=== PATIENT | female | born 1940 | race Caucasian/White ===

== ENCOUNTER 2018-02-13 12:48 | Day surgery (SDC) | payer OTHER ==
[~2018-02-13] VITALS: Ht 165.1 cm; Wt 72.1 kg
[~2018-02-13 12:48] MED LIST: ALLO300 PO; CHOL10002 PO; ERGO400 PO; LIRA0.6P; LOSARTIN; METFORMIN; NEBI10 PO
[2018-02-13] MEDS ORDERED: ATEN25 (14:20)
[2018-02-13] MEDS ORDERED: ADULT ASPIRIN81 MG (14:20)
[2018-02-13] MEDS ORDERED: LIRA0.6P (14:21)
[2018-02-13] MEDS ORDERED: K-Tab10 MEQ (14:21)
[2018-02-13] MEDS ORDERED: CHOL10002 (14:21)
[2018-02-13] MEDS ORDERED: FOLBIC RF TABL1 EACH (14:22)
[2018-02-13] MEDS ORDERED: HYDR10 (14:22)
[2018-02-13] MEDS ORDERED: HYDCHL12.5 (14:22)
== END 2018-02-13 16:11 | disposition home or self-care (01) ==
LOC: ORSCSDS 12:48
PROVIDERS: Podiatrist
PROC: 01NH0ZZ Release Peroneal Nerve, Open Approach (ICD-10-PCS; principal; 2018-02-13 15:00)
DX: G57.62 Lesion of plantar nerve, left lower limb (principal); I10 Essential (primary) hypertension; E11.9 Type 2 diabetes mellitus without complications; G47.33 Obstructive sleep apnea (adult) (pediatric); Z79.899 Other long term (current) drug therapy
CPT/HCPCS: 82947; J0690; J1100; J2250; J3010; J7120

== ENCOUNTER → 2018-08-20 | Outpatient (CLI) | payer OTHER ==
[~2018-08-20] MED LIST changes: +ADULT ASPIRIN81 MG; +ATEN25; +CHOL10002; +FOLBIC RF TABL1 EACH; +HYDCHL12.5; +HYDR10; +K-Tab10 MEQ
== END | disposition home or self-care (01) ==
LOC: PLD 15:33 → LAB SHORT 15:33
DX: D22.5 Melanocytic nevi of trunk (principal)
CPT/HCPCS: 88305

== ENCOUNTER → 2019-03-27 | Outpatient (CLI) | payer OTHER ==
[2019-03-27 13:38] LABS: BASOPHILS ABSOLUTE AUTO 0.05 K/mm3 (0.00-0.23); BASOPHILS PERCENT AUTO 1 % (0-2); EOSINOPHILS ABSOLUTE AUTO 0.16 K/mm3 (0.00-0.68); EOSINOPHILS PERCENT AUTO 2 % (0-6); Hematocrit 39.6 % (33.0-51.0); Hemoglobin 13.1 g/dL (11.5-16.0); IMMATURE GRAN ABSOLUTE AUTO 0.03 K/mm3 (0.00-0.10); IMMATURE GRAN PERCENT AUTO 0 % (0-1); LYMPHOCYTES ABSOLUTE AUTO 2.13 K/mm3 (0.84-5.20); LYMPHOCYTES PERCENT AUTO 20 % (21-46); MONOCYTES ABSOLUTE AUTO 0.78 K/mm3 (0.16-1.47); MONOCYTES PERCENT AUTO 7 % (4-13); Mean Corpuscular HGB 31.2 pg (26.0-34.0); Mean Corpuscular HGB Conc 33.1 g/dL (31.5-36.5); Mean Corpuscular Volume 94 fL (80-100); Mean Platelet Volume 11.4 fL (9.1-12.4); NEUTROPHILS ABSOLUTE AUTO 7.69 K/mm3 (1.96-9.15); NEUTROPHILS PERCENT AUTO 71 % (41-73); Platelet Count 285 K/mm3 (150-400); RDW Coefficient Variation 14.2 % (11.7-14.2); RDW Standard Deviation 48.3 fL (35.1-46.3); White Blood Cell Count 10.84 K/mm3 (4.00-11.30)
[2019-03-27 14:12] LABS: Albumin, Blood 3.4 g/dL (3.4-5.0); Albumin/Globulin Ratio 0.8 (0.8-1.8); Bilirubin, Total 0.4 mg/dL (0.1-1.0); Bun/Creatinine Ratio 17.1 (12.0-20.0); Calcium, Blood 9.2 mg/dL (8.5-10.1); Creatinine, Blood 1.17 mg/dL (0.40-1.00); Globulin, Blood 4.4 g/dL (2.2-4.0); Potassium, Blood 3.3 mmol/L (3.5-5.5); Total Protein, Blood 7.8 g/dL (6.4-8.2)
== END ==
LOC: LAB 10:50 → LAB SHORT 10:50
DX: E78.5 Hyperlipidemia, unspecified (principal); M60.9 Myositis, unspecified
CPT/HCPCS: 80053; 82550; 85025; 85651

== ENCOUNTER 2020-02-02 06:48 | Day surgery (SDC) | payer OTHER ==
[~2020-02-02] VITALS: Ht 165.1 cm; Wt 77.2 kg
[~2020-02-02 06:48] MED LIST changes: +ATEN25 PO; +Aspir 8181 MG PO; +CALCIUM-MAGNES1 EAC9 PO; +FISH OIL 1,2001 EAC7 PO; +GLUCOSAMIN-CHO1 EACH PO; +HYDROCHLOROTH12.5 MG PO; +PRED5 PO; +VICTOZA 2-0.6 MG/0.1 SC; +Vitamin D2000 UNIT PO
== END 2020-02-02 09:12 | disposition home or self-care (01) ==
LOC: ORSCSDS 06:48
PROVIDERS: Ophthalmology
PROC: 08RK3JZ Replacement of Left Lens with Synthetic Substitute, Percutaneous Approach (ICD-10-PCS; principal; 2020-02-02 08:15)
DX: H25.11 Age-related nuclear cataract, right eye (principal); I10 Essential (primary) hypertension; G47.33 Obstructive sleep apnea (adult) (pediatric); I12.9 Hypertensive chronic kidney disease with stage 1 through stage 4 chronic kidney disease, or unspecified chronic kidney disease; E11.22 Type 2 diabetes mellitus with diabetic chronic kidney disease; N18.2 Chronic kidney disease, stage 2 (mild); E11.36 Type 2 diabetes mellitus with diabetic cataract; Z79.899 Other long term (current) drug therapy
CPT/HCPCS: 82947; J2001; J2250; J3010; J3301; J7040; V2632

== ENCOUNTER 2020-03-01 09:02 | Day surgery (SDC) | payer OTHER ==
[~2020-03-01] VITALS: Ht 165.1 cm; Wt 76.0 kg
--- NOTE | 2020-03-01 10:36 | NUR ---
03/01/20 1036 Jocelyn Leach INSTILLED EXTRA DILATOR DROP PER DR. NINO
== END 2020-03-01 11:49 | disposition home or self-care (01) ==
LOC: ORSCSDS 09:02
PROVIDERS: Ophthalmology
PROC: 08RJ3JZ Replacement of Right Lens with Synthetic Substitute, Percutaneous Approach (ICD-10-PCS; principal; 2020-03-01 10:45)
DX: H25.11 Age-related nuclear cataract, right eye (principal); I10 Essential (primary) hypertension; E11.36 Type 2 diabetes mellitus with diabetic cataract; Z79.82 Long term (current) use of aspirin; Z79.4 Long term (current) use of insulin; Z79.899 Other long term (current) drug therapy
CPT/HCPCS: 82947; J2001; J2250; J3010; J3301; J7040; V2632

== ENCOUNTER 2020-07-14 13:56 | Day surgery (SDC) | payer OTHER ==
[~2020-07-14] VITALS: Ht 165.1 cm; Wt 74.1 kg
[~2020-07-14 13:56] MED LIST changes: +ACET325 PO; +ALLO100 PO; +ATEN50 PO; +KLOR-CON 1010 ME1 PO; +Prednisone2.5 MG PO
[2020-07-14] MEDS ORDERED: Aspir 8181 MG PO (14:30)
[2020-07-14] MEDS ORDERED: MICROZIDE12.5 M1 PO (14:30)
[2020-07-14] MEDS ORDERED: VITAMIN D325 MC3 PO (14:30)
== END 2020-07-14 16:16 | disposition home or self-care (01) ==
LOC: ORSCSDS 13:56
PROVIDERS: Podiatrist
PROC: 01BG0ZZ Excision of Tibial Nerve, Open Approach (ICD-10-PCS; principal; 2020-07-14 15:30)
DX: G57.62 Lesion of plantar nerve, left lower limb (principal); I10 Essential (primary) hypertension; E11.42 Type 2 diabetes mellitus with diabetic polyneuropathy; Z79.899 Other long term (current) drug therapy; Z79.82 Long term (current) use of aspirin
CPT/HCPCS: 82947; 88304; A9270; J0690; J1100; J2405; J2704; J3010; J7120

== ENCOUNTER → 2020-09-16 | Outpatient (CLI) | payer OTHER ==
[~2020-09-16] MED LIST changes: +MICROZIDE12.5 M1 PO; +VITAMIN D325 MC3 PO
[2020-09-16 13:37] LABS: BASOPHILS ABSOLUTE AUTO 0.05 K/mm3 (0.00-0.23); BASOPHILS PERCENT AUTO 0 % (0-2); EOSINOPHILS ABSOLUTE AUTO 0.24 K/mm3 (0.00-0.68); EOSINOPHILS PERCENT AUTO 2 % (0-6); Hematocrit 43.1 % (33.0-51.0); Hemoglobin 14.4 g/dL (11.5-16.0); IMMATURE GRAN ABSOLUTE AUTO 0.06 K/mm3 (0.00-0.10); IMMATURE GRAN PERCENT AUTO 1 % (0-1); LYMPHOCYTES PERCENT AUTO 22 % (21-46); MONOCYTES PERCENT AUTO 8 % (4-13); Mean Corpuscular HGB 30.4 pg (26.0-34.0); Mean Corpuscular HGB Conc 33.4 g/dL (31.5-36.5); Mean Corpuscular Volume 91 fL (80-100); Mean Platelet Volume 12.4 fL (9.1-12.4); NEUTROPHILS PERCENT AUTO 67 % (41-73); Platelet Count 297 K/mm3 (150-400); RDW Coefficient Variation 14.6 % (11.7-14.2); RDW Standard Deviation 48.3 fL (35.1-46.3); Red Blood Cell Count 4.73 M/mm3 (3.80-5.20); White Blood Cell Count 12.15 K/mm3 (4.00-11.30)
[2020-09-16 14:00] LABS: Alanine Aminotransfer (ALT/SGP 28 U/L (12-78); Albumin, Blood 3.7 g/dL (3.4-5.0); Albumin/Globulin Ratio 0.8 (0.8-1.8); Alk Phos 60 U/L (50-136); Anion Gap 4 mmol/L (6-16); Aspartate Aminotrans (AST/SGOT 19 U/L (12-37); Bilirubin, Total 0.5 mg/dL (0.1-1.0); Blood Urea Nitrogen 24 mg/dL (8-24); Bun/Creatinine Ratio 18.5 (12.0-20.0); CHOL/HDL RATIO 7.4; CO2, Blood 29 mmol/L (21-32); Calcium, Blood 10.1 mg/dL (8.5-10.1); Chloride, Blood 108 mmol/L (98-108); Cholesterol 319 mg/dL (50-200); Free Thyroxine 1.02 ng/dL (0.70-1.60); Globulin, Blood 4.5 g/dL (2.2-4.0); Glomerular Filtration Rate 42 (60-); Glucose, Blood 100 mg/dL (70-99); HDL Cholesterol 43 mg/dL (>39); LDL/HDL RATIO 5.4; Low Density Lipoprotein Chol 234 mg/dL (0-110); Potassium, Blood 4.3 mmol/L (3.5-5.5); Sodium, Blood 141 mmol/L (136-145); Total Protein, Blood 8.2 g/dL (6.4-8.2); Triglycerides 209 mg/dL (30-160); Very Low Density Lipoprot Chol 41 mg/dL (6-32)
== END ==
LOC: LAB SHORT 11:25 → LAB 11:25 → LAB FUT 09-16 11:50
PROVIDERS: Nurse Practitioner Family
DX: E11.51 Type 2 diabetes mellitus with diabetic peripheral angiopathy without gangrene (principal); E78.5 Hyperlipidemia, unspecified
CPT/HCPCS: 80053; 80061; 83036; 84439; 84443; 85025

== ENCOUNTER → 2020-12-28 | Outpatient (CLI) | payer OTHER | END | disposition home or self-care (01) | LOC: LAB SHORT 16:00 | DX: K52.9 Noninfective gastroenteritis and colitis, unspecified (principal) | CPT/HCPCS: 83631 ==

== ENCOUNTER → 2021-01-20 | Outpatient (CLI) | payer OTHER ==
[2021-01-20 11:05] LABS: Creatinine Urine 66.2 mg/dL (27.00-270.00); Microalbumin, Urine Quant. 16.3 mg/L (0.000-20.000); Protein, Urine Quantitative 6.8 mg/dL (0.0-11.9)
== END | disposition home or self-care (01) ==
LOC: LAB SHORT 09:14
PROVIDERS: Internal Medicine Nephrology
DX: N18.30 Chronic kidney disease, stage 3 unspecified (principal); D63.1 Anemia in chronic kidney disease; N25.81 Secondary hyperparathyroidism of renal origin; E55.9 Vitamin D deficiency, unspecified; E78.00 Pure hypercholesterolemia, unspecified; D51.8 Other vitamin B12 deficiency anemias; D52.8 Other folate deficiency anemias; D50.9 Iron deficiency anemia, unspecified; R76.9 Abnormal immunological finding in serum, unspecified; R94.5 Abnormal results of liver function studies; R94.6 Abnormal results of thyroid function studies
CPT/HCPCS: 81050; 82043; 82570; 84156; 86335